=== PATIENT | male | born 1990 | race Caucasian/White ===

== ENCOUNTER 2020-12-17 01:47 | Observation (INO) | payer OTHER, SELFPAY ==
[2020-12-17] VITALS (13 sets, daily range): BP systolic 103–183; BP diastolic 59–97; PULSE 56–91; RESP 16–20; TEMP 36.1–36.9; O2SAT 91–100; BMI 33.4
--- NOTE | ~2020-12-17 | US_ITS ---
US abdomen limited INDICATION: Right upper quadrant pain. Cholelithiasis. PROCEDURE: Realtime right upper abdominal ultrasound. COMPARISON: No prior studies for comparison. FINDINGS: The pancreas is normal without focal mass or pancreatic ductal dilation. Liver echotexture is normal without focal mass or intrahepatic biliary dilatation. There is normal directional flow i n the portal vein. There are gallstones and gallbladder sludge. Mild gallbladder wall thickening measuring 4 mm. Common bile duct measures 3 mm. Positive sonographic Morales's sign. IMPRESSION: 1: Cholelithiasis, gallbladder sludge and gallbladder wall thickening with positive sonographic Raza y's sign. This constellation of findings is compatible with cholecystitis. Correlate clinically. Reviewed, dictated and finalized at location A. IMPRESSION: 1: Cholelithiasis, gallbladder sludge and gallbladder wall thickening with posi tive sonographic Morales's sign. This constellation of findings is compatible wi th cholecystitis. Correlate clinically.
--- NOTE | ~2020-12-17 | CT_ITS ---
EXAMINATION: CT abdomen pelvis wo con DATE: 12/17/2020 02:56 INDICATION: Flank pain for 4 days radiating to the front of the abdomen TECHNIQUE: Computed tomography (CT) of the abdomen and pelvis was performed without intravenous contr ast. The dose-length product was 393.20 mGy-cm. Automated exposure control and iterative reconstructi on technique were employed. COMPARISON: None. FINDINGS: Lung bases are unremarkable. Heart size is normal. No significant pleural or pericardial ef fusion. There are gallstones. There is hazy pericholecystic fatty infiltration, suspicious for cholec ystitis. The liver, spleen, pancreas, adrenal glands and and kidneys are unremarkable. Nonobstructive bowel gas pattern. No significant vascular abnormality. No lymphadenopathy. No acute osseous abnorma lity. No renal stones or hydronephrosis. IMPRESSION: 1. Cholelithiasis with mild pericholecystic fatty infiltration, suspicious for acute cholecystitis. Reviewed, dictated and finalized at location A.
--- NOTE | 2020-12-17 02:16 | ECG_ITS ---
Measurements Intervals [place] Rate: 59 P: 19 DE: 144 QRS: 13 QRSD: 116 T: -5 QT: 399 QTc: 397 Interpretive Statements SINUS BRADYCARDIA INCOMPLETE RIGHT BUNDLE BRANCH BLOCK CONSIDER INFERIOR INFARCT, AGE INDETERMINATE ABNORMAL ECG Electronically Signed On 12-17-2020 6:15:14 CDT by Boubacar Alexander D.O.
--- NOTE | 2020-12-17 02:17 | ED.GENADULT ---
HPI - General Adult General Chief complaint: Back Pain/Injury Stated complaint: back pain x 4 days Time Seen by Provider: 12/17/20 02:13 History of Present Illness HPI narrative: Patient 28-year-old gentleman who presents the emergency department with chief complaint of back pain and abdominal pain. The patient reports for the last 4 days has been having pain in the upper mid back that radiates to the front of his abdomen. The patient states the pain is sharp reports that is not improved by anything and reports that is not worsened by anything. Patient reports that tonight he got significantly worse reports that he has been diaphoretic and unable to find a position that gets him comfortable. The patient reports that over the last 4 days he is attempted to have chiropractic adjustment reports that he is tried other things at home to try to get the pain under control but has had no relief. Patient denies fever denies vomiting denies diarrhea patient reports has had no trauma. Related Data Home Medications Medication Instructions Recorded Confirmed omeprazole 20 mg PO DAILY 12/17/20 venlafaxine 75 mg PO DAILY 12/17/20 Allergies Allergy/AdvReac Type Severity Reaction Status Date / Time No Known Allergies Allergy Verified 12/17/20 01:55 Review of Systems Review of Systems: A 10 system review of systems was completed on the patient and is negative except for what is stated in the HPI. Nursing and ancillary documentation was reviewed. Exam Narrative: GENERAL: Well-appearing, well-nourished, and in no acute distress. HEAD: Normocephalic, atraumatic. EYES: PERRLA and EOMI. ENT: Nares clear, no rhinorrhea or epistaxis. Mucous membranes moist. NECK: Supple. CHEST: Clear to auscultation. No respiratory distress. HEART: Regular rate and rhythm. No murmur heard. Normal peripheral pulses. ABDOMEN: Soft, nontender, nondistended, normal active bowel sounds. EXTREMITIES: Normal range of motion. No edema. SKIN: Warm, dry, no rash. NEURO: No focal deficits. Alert and oriented x3. PSYCH: Normal mood and affect. Course Course Emergency Course: CT scan of the abdomen pelvis showed cholelithiasis and hazy gallbladder wall concern for cholecystitis. The patient case was discussed with Dr. Munoz of the surgical service and the patient admitted for observation and gallbladder ultrasound. Vital Signs Vital signs: Vital Signs Temperature 36.4 C 12/17/20 01:50 Pulse Rate 83 12/17/20 01:50 Respiratory Rate 16 12/17/20 01:50 Blood Pressure 137/97 H 12/17/20 01:50 Pulse Oximetry 100 12/17/20 01:50 Temperature 36.4 C 12/17/20 01:50 Pulse Rate 56 L 12/17/20 04:08 Respiratory Rate 16 12/17/20 04:08 Blood Pressure 145/83 H 12/17/20 04:08 Pulse Oximetry 100 12/17/20 04:08 Medical Decision Making Vital Signs Vital Signs: Vital Signs Temperature 36.4 C 12/17/20 01:50 Pulse Rate 83 12/17/20 01:50 Respiratory Rate 16 12/17/20 01:50 Blood Pressure 137/97 H 12/17/20 01:50 Pulse Oximetry 100 12/17/20 01:50 Temperature 36.4 C 12/17/20 01:50 Pulse Rate 56 L 12/17/20 04:08 Respiratory Rate 16 12/17/20 04:08 Blood Pressure 145/83 H 12/17/20 04:08 Pulse Oximetry 100 12/17/20 04:08 Lab Data Result diagrams: 12/17/20 02:36 12/17/20 02:36 Labs: Lab Results 12/17/20 12/17/20 12/17/20 Range/Units 02:36 02:36 02:36 WBC 13.0 H (4.5-10.0) K/mm3 RBC 5.16 (4.6-6.20) M/mm3 Hgb 14.9 (14.0-18.0) g/dL Hct 45.3 (42.0-52.0) % MCV 87.8 (80-100) fl MCH 28.9 (26-34) pg MCHC 32.9 (32-36) g/dl RDW 12.0 (11.5-14.5) % Plt Count 279 (150-375) k/mm3 MPV 10.3 (7.4-10.4) fl Immature Gran % (Auto) 0.3 (0-0.5) % Neut % (Auto) 74.8 H (45.5-73.1) % Lymph % (Auto) 17.5 L (18.3-44.2) % [place] % (Auto) 5.3 (2.6-8.5) % Eos % (Auto) 1.7 (0-4.4) % Baso % (Auto) 0.4 (0.2-1.2) % Lymph
[2020-12-17] MEDS: SODIUM CHLORIDE 0.9% IV 1,000 ML 999 ML IV CONT (02:34)
[2020-12-17] MEDS: HYDROmorphone HCL INJ (*CRX) 1 MG/ML SYR IV PUSH ×3 (02:36→22:33)
[2020-12-17] MEDS: ONDANSETRON INJ 4 MG/2 ML VIAL IV PUSH ×3 (02:36→22:33)
[2020-12-17 02:56] LABS: Basophils Absolute Auto 0.1 K/mm3 (0.0-0.1); Basophils Percent Auto 0.4 % (0.2-1.2); Eosinophils Absolute Auto 0.2 K/mm3 (0-0.3); Eosinophils Percent Auto 1.7 % (0-4.4); Hematocrit 45.3 % (42.0-52.0); Hemoglobin 14.9 g/dL (14.0-18.0); Immature Granulocyte Absolute 0.04 K/mm3 (0.00-0.031); Immature Granulocyte Percent A 0.3 % (0-0.5); Lymphocytes Absolute Auto 2.27 K/mm3 (0.9-3.2); Lymphocytes Percent Auto 17.5 % (18.3-44.2); Mean Corpuscular HGB Conc 32.9 g/dl (32-36); Mean Corpuscular Hemoglobin 28.9 pg (26-34); Mean Corpuscular Volume 87.8 fl (80-100); Mean Platelet Volume 10.3 fl (7.4-10.4); Monocytes Absolute Auto 0.7 K/mm3 (0.1-0.6); Monocytes Percent Auto 5.3 % (2.6-8.5); Neutrophils Absolute Auto 9.7 K/mm3 (1.3-6.7); Neutrophils Percent Auto 74.8 % (45.5-73.1); Platelet Count Result 279 k/mm3 (150-375); Red Blood Count 5.16 M/mm3 (4.6-6.20)
[2020-12-17 02:58] LABS: Add Urine Microscopic? YES; Appearance Urine Clear (Clear); Bilirubin Urine 1+ (Negative); Blood Urine 1+ (Negative); Color Urine Yellow (Yellow); Glucose Urine UA Negative (Negative); Ketones Urine Negative (Negative); Leukocyte Esterase Ur Negative LEU/UL (Negative); Mucus Urine Rare /lpf; Nitrate Urine Negative (Negative); Protein Urine Negative (Negative); RBC Urine 0-2 /hpf (0-2); Urobilinogen Urine Negative mg/dL (<2.0); WBC Urine 0-3 /hpf
[2020-12-17 03:06] LABS: Specific Grav Ur 1.032 (1.001-1.035)
[2020-12-17 03:07] LABS: Alanine Aminotransferase 73 U/L (4-50); Albumin Level 5.2 g/dL (3.5-5.1); Alkaline Phosphatase 81 U/L (38-126); Anion Gap 10 mmol/L (8-16); Aspartate Amino Transferase 42 U/L (17-59); Bilirubin,Total 0.4 mg/dL (0.2-1.3); Blood Urea Nitrogen 17 mg/dL (9-20); Calcium 9.7 mg/dL (8.4-10.2); Carbon Dioxide 24 mmol/L (22-30); Chloride 105 mmol/L (98-107); Estimated CRCL calculation 123 ml/min; Estimated Glomerular Filt Rate > 60; Glucose 99 mg/dL (65-110); Lactic Acid Reflex 1.5 mmol/L (0.7-2.1); Lipase 99 U/L (23-300); Sodium 139 mmol/L (137-145)
[2020-12-17] MEDS: SODIUM CHLORIDE 0.9% IV 1,000 ML 125 ML IV CONT ×2 (06:27→15:41)
[2020-12-17] MEDS: FAMOTIDINE 20 MG/2 ML VIAL (11:08)
--- NOTE | 2020-12-17 14:35 | ADMGEN ---
This patient, Darío Wade, was admitted to 2 Medical Room 261-01. Patient/family oriented to hospital policies and general routines including ID bracelet, bed and alarms, visiting hours, pain management, procedures, bathroom and other care routines, personal items, smoking policy, room service/diet, and visiting hours. Information on how to activate the Rapid Response Team has been discussed. Patient/Family are encouraged to report perceived risks to care and to ask questions if they do not understand what they are told or what they should do.
[2020-12-17] MEDS: FAMOTIDINE 20 MG/2 ML VIAL IV PUSH (20:49)
--- NOTE | 2020-12-17 21:36 | PM.IMHP ---
H&P: HPI History of Present Illness Date/Time: 12/17/20 21:36 Chief Complaint: upper midback pain Narrative: This patient is a 30-year-old White gentleman who presented the [place] emergency department early this morning with the chief complaint of back pain and abdominal pain. The patient reports for the last 4 days has been having on and off pain in the upper mid back that radiates to the front of his abdomen. The patient states the pain is sharp. he reports that it is not improved by anything and reports that is not worsened by anything. patient states that most recently he was fairly pain free in slept well on Thursday night. However, on Thursday at about 4:00 p.m. he and his fiancee when out to [employer] and he had a be per read 0 along with saw her cream. Subsequently the severe back pain hit again at about 10:00 p.m. Thursday night so he came to the emergency room early this morning when it did not resolve. Patient reported to the ER MD early this morning in that he had been diaphoretic and unable to find a position that could get him comfortable. The patient reports that over the last 4 days he is attempted various things to improve the pain. This includes scalding hot showers, ice and going to have a chiropractic adjustment. He reports that he is tried other things at home to try to get the pain under control but has had no relief. Patient denies fever, chills, or vomiting. he also denies diarrhea. The patient reports has had no trauma. Workup in emergency room early this morning reveals somewhat elevated white blood cell count a normal lactic acid and CT scan of the abdomen pelvis that suggested some thickening of the gallbladder wall and possible cholelithiasis. Therefore, after a discussion with ER MD we decided to keep the patient observation status and do an ultrasound of the gallbladder today. this resulted in confirmation of gallstones along with thickened gallbladder wall mild pericholecystic the cystic fluid along with a definite Morales sign. Therefore, earlier today started the patient on IV antibiotics and he continues to receive analgesics he does feel better but will also plan to proceed with a laparoscopic cholecystectomy possible open tomorrow. Review of Systems Constitutional: Constitutional: Reports as per HPI and Denies headache(s) Eyes: Eyes: Denies loss of vision and Denies eye pain ENT: Reports Normal hearing present, Denies change in voice, Denies dizziness and Denies headache(s) Cardiovascular: Cardiovascular: Denies chest pain and Denies dyspnea Respiratory: Respiratory: Denies dyspnea and Denies wheezing Gastrointestinal: Gastrointestinal: Reports abdominal pain ( mild intermittently in upper abdomen) and Denies dysphagia Genitourinary: Genitourinary: Reports no additional male genitourinary complaints Musculoskeletal: Musculoskeletal: Denies back pain and Denies arthralgias Integumentary/Breasts: Comments: multiple small lipomas. One on the dorsal mid forearm on the left. Neurologic: Reports Normal hearing present, Denies dizziness, Denies headache(s), Denies loss of vision and Denies memory loss Psychiatric: Psychiatric: Denies memory loss and Denies panic attacks Endocrine: Endocrine: Reports no additional endocrine complaints Hematologic/Lymphatic: Hematologic/Lymphatic: Reports no additional hematologic/lymphatic complaints Allergic/Immunologic: Allergic/Immunologic: Denies wheezing [facility] Past Medical History Medical History (Updated 12/18/20 @ 11:19 by Andrea Pérez MD) Biliary colic Cholelithiasis with acute on chronic cholecystitis without biliary obstruction (~12/13/20) Obesity (BMI 30.0-34.9) (Unknown) Family History Family History (Updated 12/17/20 @ 21:48 by Vipin Munoz MD) Father Non-Hodgkin lymphoma Other Carcinoma of colon Social History Social History Smoking status: Never smoker Drinks p
[2020-12-18] VITALS (17 sets, daily range): BP systolic 97–140; BP diastolic 51–89; PULSE 58–103; RESP 14–20; TEMP 35.8–36.6; O2SAT 95–100
[2020-12-18] MEDS: SODIUM CHLORIDE 0.9% IV 1,000 ML 125 ML IV CONT (03:07)
[2020-12-18 05:47] LABS: Basophils Percent Auto 0.4 % (0.2-1.2); Eosinophils Absolute Auto 0.3 K/mm3 (0-0.3); Eosinophils Percent Auto 3.9 % (0-4.4); Hematocrit 40.9 % (42.0-52.0); Hemoglobin 13.3 g/dL (14.0-18.0); Immature Granulocyte Absolute 0.02 K/mm3 (0.00-0.031); Immature Granulocyte Percent A 0.3 % (0-0.5); Lymphocytes Absolute Auto 2.01 K/mm3 (0.9-3.2); Lymphocytes Percent Auto 29.3 % (18.3-44.2); Mean Corpuscular HGB Conc 32.5 g/dl (32-36); Mean Corpuscular Hemoglobin 28.7 pg (26-34); Mean Corpuscular Volume 88.3 fl (80-100); Mean Platelet Volume 10.3 fl (7.4-10.4); Monocytes Absolute Auto 0.7 K/mm3 (0.1-0.6); Monocytes Percent Auto 9.8 % (2.6-8.5); Neutrophils Absolute Auto 3.9 K/mm3 (1.3-6.7); Neutrophils Percent Auto 56.3 % (45.5-73.1); Platelet Count Result 213 k/mm3 (150-375); Red Blood Count 4.63 M/mm3 (4.6-6.20); Red Cell Distribution Width 12.1 % (11.5-14.5); White Blood Count 6.9 K/mm3 (4.5-10.0)
[2020-12-18 06:13] LABS: Alanine Aminotransferase 54 U/L (4-50); Albumin Level 4.1 g/dL (3.5-5.1); Alkaline Phosphatase 75 U/L (38-126); Amylase 53 U/L (30-110); Anion Gap 7 mmol/L (8-16); Aspartate Amino Transferase 29 U/L (17-59); Bilirubin,Total 0.7 mg/dL (0.2-1.3); Blood Urea Nitrogen 10 mg/dL (9-20); Calcium 8.8 mg/dL (8.4-10.2); Carbon Dioxide 25 mmol/L (22-30); Chloride 104 mmol/L (98-107); Estimated CRCL calculation 141 ml/min; Estimated Glomerular Filt Rate > 60; Glucose 91 mg/dL (65-110); Lipase 73 U/L (23-300); Potassium 3.8 mmol/L (3.4-5.0); Sodium 136 mmol/L (137-145)
[2020-12-18] MEDS: FAMOTIDINE 20 MG/2 ML VIAL IV PUSH ×2 (08:31→20:03)
--- NOTE | 2020-12-18 10:50 | PC.NURSE ---
To OR per stretcher, IV saline locked.
[2020-12-18] MEDS: LACTATED RINGERS 1,000 ML 30 ML IV CONT ×2 (11:00→14:11)
--- NOTE | 2020-12-18 11:18 | WPDANESEPPF ---
Anes - Initial Pre Proc Eval Procedure: Operation Date: 12/18/20 12:00 Proposed Procedures p Laparoscopic Cholecystectomy,Possible Intraoperative Cholangiograms,Possible Open - Vipin Munoz MD Date/Time: 12/18/20 11:18 Surgeon: Vipin Munoz MD Pre Op Diagnosis: Biliary colic Patient Data Age: 30 Gender: M Height: 1.88 m Weight: 118.1 kg Last Vital Signs Temp 36.3 C L 12/18/20 11:01 Pulse 75 12/18/20 11:01 Resp 16 12/18/20 11:01 BP 127/76 12/18/20 11:01 Pulse Ox 100 12/18/20 11:01 Allergies Allergy/AdvReac Type Severity Reaction Status Date / Time No Known Allergies Allergy Verified 12/17/20 14:59 Home Medications Medication Instructions Recorded Confirmed Type omeprazole 20 mg PO DAILY 12/17/20 12/17/20 History venlafaxine 75 mg PO DAILY 12/17/20 12/17/20 History Laboratory Tests 12/18/20 12/18/20 12/18/20 05:13 05:13 05:13 WBC 6.9 K/mm3 K/mm3 (4.5-10.0) RBC 4.63 M/mm3 M/mm3 (4.6-6.20) Hgb 13.3 g/dL L g/dL (14.0-18.0) Hct 40.9 % L % (42.0-52.0) MCV 88.3 fl fl (80-100) MCH 28.7 pg pg (26-34) MCHC 32.5 g/dl g/dl (32-36) RDW 12.1 % % (11.5-14.5) Plt Count 213 k/mm3 k/mm3 (150-375) MPV 10.3 fl fl (7.4-10.4) Immature Gran % (Auto) 0.3 % % (0-0.5) Neut % (Auto) 56.3 % % (45.5-73.1) Lymph % (Auto) 29.3 % % (18.3-44.2) Patrick % (Auto) 9.8 % H % (2.6-8.5) Eos % (Auto) 3.9 % % (0-4.4) Baso % (Auto) 0.4 % % (0.2-1.2) Lymph # (Auto) 2.01 K/mm3 K/mm3 (0.9-3.2) Patrick # (Auto) 0.7 K/mm3 H K/mm3 (0.1-0.6) Eos # (Auto) 0.3 K/mm3 K/mm3 (0-0.3) Baso # (Auto) 0.0 K/mm3 K/mm3 (0.0-0.1) Abs Immat Gran (auto) 0.02 K/mm3 K/mm3 (0.00-0.031) Absolute Neuts (auto) 3.9 K/mm3 K/mm3 (1.3-6.7) Absolute Nucleated RBC 0.0 K/mm3 K/mm3 (0.0-0.012) Nucleated RBC % 0.0 % % (0.0-0.2) Sodium 136 mmol/L L mmol/L (137-145) Potassium 3.8 mmol/L mmol/L (3.4-5.0) Chloride 104 mmol/L mmol/L (98-107) Carbon Dioxide 25 mmol/L mmol/L (22-30) Anion Gap 7 mmol/L L mmol/L (8-16) BUN 10 mg/dL D mg/dL (9-20) Creatinine 0.90 mg/dL mg/dL (0.7-1.3) Estim Creat Clear Calc 141 ml/min ml/min Estimated GFR > 60 (59 - ) Glucose 91 mg/dL mg/dL (65-110) Calcium 8.8 mg/dL mg/dL (8.4-10.2) Total Bilirubin 0.7 mg/dL mg/dL (0.2-1.3) AST 29 U/L U/L (17-59) ALT 54 U/L H U/L (4-50) Alkaline Phosphatase 75 U/L U/L (38-126) Total Protein 7.0 g/dL g/dL (6.3-8.2) Albumin 4.1 g/dL g/dL (3.5-5.1) Amylase 53 U/L U/L (30-110) Lipase 73 U/L U/L (23-300) Blood Type A Positive Antibody Screen Negative Patient hx anesthesia problems: none Family hx anesthesia problems: none [facility] Past Medical History Medical History (Updated 12/18/20 @ 11:19 by Andrea Pérez MD) Biliary colic Cholelithiasis with acute on chronic cholecystitis without biliary obstruction (~12/13/20) Obesity (BMI 30.0-34.9) (Unknown) Family History Family History (Updated 12/17/20 @ 21:48 by Vipin Munoz MD) Father Non-Hodgkin lymphoma Other Carcinoma of colon Social History Social History Smoking status: Never smoker Drinks per week: 2 Substance use: never Spiritual care concerns: No Anes - Eval Final PreProcedure Day of Procedure 12/18/20 11:18 Patient weight: obese Heart: regular rate and rhythm Lungs: clear to auscultation and normal air movement Airway: Mallampati scale class II Neurological: alert and oriented Last oral intake: >/= 8 hours A
--- NOTE | 2020-12-18 12:01 | WPDHPUPDATE1 ---
History and Physical Update Update Date/Time: 12/18/20 12:01 History and Physical has been reviewed, including an updated exam of the patient. There are NO changes in the patient's condition. Risks, benefits, and alternatives have been discussed and questions answered. Patient agrees to proceed with procedure.
[2020-12-18] MEDS: BUPIVACAINE/EPINEPHRINE 0.5% 50 ML VIAL (12:48)
--- NOTE | 2020-12-18 14:30 | W.PM.PROC2 ---
Procedure Note - Detailed Date of Procedure 12/18/20 Pre-op Diagnosis 1. Acute on chronic cholecystitis with cholelithiasis without biliary obstruction 2. Biliary colic Post-op Diagnosis same Procedure Performed Laproscopic Cholecystectomy Surgeon Vipin Munoz MD International Affairs Vice President Brigitte HANNON.OR certified surgical first assistant Anesthesia general Indications See H&P Patient has had on and off severe back pain in episodes correlating with eating fatty foods. CT and ultrasound on evaluation in the emergency room showed definite cholecystitis suspected to be acute. Findings Patient had significant edema of the omentum and pericholecystic fluid around the gallbladder. The gallbladder was whitish, red in color and inflamed. There was significant inflammatory adhesions around the triangle of Calot. Description of Procedure Patient was seen preoperatively in the holding area and risks, benefits and alternatives confirmed. Patient was taken to the operating room and general anesthesia was induced. A time out was then preformed with the surgery team confirming patient and site of surgery. The abdomen was prepped and draped in the usual sterile fashion. Incision was made just below the umbilicus with an 11 blade knife. I placed 2 stay sutures of O- Vicryl on either side of the mid-line fascia beneath the umbilicus and made a 1 cm incision with an 11 blade knife in the midline fascia and was then able to slide in the Barr cannula through the fascial defect into the peritoneum. First under low flow and then under high flow the abdomen was insufflated with carbon dioxide never exceeding a pressure of 14. Three 5 mm trocars were then introduced under direct vision. The following trocars were introduced under direct vision: a 5 mm in the epigastrium and two 5 mm trocars along the right costal margin laterally in the subcostal area. There were significant omental adhesions to the underside of the gallbladder. These were taken down with blunt and sharp dissection using some Bovie cautery for hemostasis. We were able to dissect this completely away from the neck of the gallbladder. I then carefully used the L-shaped cautery and the [place] dissector to dissect out the triangle of Calot. I then was able to dissect out both the cystic duct and cystic artery and identify a window of safety. The gall bladder was grasped and the cystic duct and artery were dissected free and clipped with an 5 mm endo-clip manager market research. The cystic duct and artery were clipped with use of 2 clips on the patient's side 1 on the gallbladder side utilizing a 5 mm endoclip-manager market research. The cystic duct was then transected. The cystic artery was also transected at this point. The gall bladder was removed using electrocautery and then removed from the abdomen using an endobag . The trocars were removed visualizing hemostasis and the remaining gas evacuated. The large trocar site at the umbilicus was closed with use of the 2 stay sutures of 0 Vicryl mentioned above and also a figure of 8 O-Vicryl suture. The 2 stay sutures mentioned above on either side of the fascia were also tied together to help approximate this midline fascia. Further local anesthetic was placed into each incision for postop pain control. The skin incisions were closed with subcuticular suture of 4-0 Monocryl. Surgical glue then was applied to all the incisions. Patient tolerated the procedure well was taken to the recovery room in good condition. Implants none Estimated Blood Loss 40 Drains No Packing No Pathology yes (Gallbladder) Complications No immediate complications Condition stable Disposition PACU
[2020-12-18] MEDS: fentaNYL CITRATE INJ (*CRX) 100 MCG/2 ML VIAL 25 MCG IV PUSH ×8 (14:40→15:25)
--- NOTE | 2020-12-18 15:45 | PC.NURSE ---
Returned from OR per stretcher. Report received from PARVEZ Roberto.
[2020-12-18] MEDS: LACTATED RINGERS 1,000 ML 100 ML IV CONT (16:42)
[2020-12-18] MEDS: HYDROcodone/acetaminophen (*CRX) 5-325 MG TABLET 1 TAB PO (16:43)
[2020-12-18] MEDS: SENNA/DOCUSATE SODIUM TABLET 2 TAB PO (20:02)
[2020-12-18] MEDS: HYDROcodone/acetaminophen (*CRX) 7.5-325 MG TABLET 1 TAB PO (20:03)
[2020-12-18] MEDS: MORPHINE SULFATE (*CRX) 2 MG/ML INJ IV PUSH (23:23)
[2020-12-19] MEDS: HYDROcodone/acetaminophen (*CRX) 7.5-325 MG TABLET 1 TAB PO (05:22)
[2020-12-19 05:34] LABS: Hematocrit 39.7 % (42.0-52.0); Hemoglobin 13.1 g/dL (14.0-18.0); Mean Platelet Volume 10.4 fl (7.4-10.4); Platelet Count Result 240 k/mm3 (150-375); Red Blood Count 4.51 M/mm3 (4.6-6.20); White Blood Count 13.5 K/mm3 (4.5-10.0)
[2020-12-19 06:16] LABS: Alanine Aminotransferase 89 U/L (4-50); Albumin Level 4.1 g/dL (3.5-5.1); Alkaline Phosphatase 73 U/L (38-126); Anion Gap 11 mmol/L (8-16); Aspartate Amino Transferase 56 U/L (17-59); Bilirubin,Total 0.6 mg/dL (0.2-1.3); Blood Urea Nitrogen 9 mg/dL (9-20); Calcium 9.2 mg/dL (8.4-10.2); Carbon Dioxide 21 mmol/L (22-30); Chloride 108 mmol/L (98-107); Estimated CRCL calculation 158 ml/min; Estimated Glomerular Filt Rate > 60; Glucose 107 mg/dL (65-110); Sodium 140 mmol/L (137-145)
[2020-12-19 06:20] VITALS: BP 130/55; PULSE 78; RESP 16; TEMP 36.5; O2SAT 98
--- NOTE | 2020-12-19 08:17 | PM.DS ---
DS: Admitting Diagnosis Admitting Diagnosis 1. Abdominal pain 2. acute on chronic cholecystitis with cholelithiasis DS: Discharge Diagnosis Discharge Diagnosis (1) Cholelithiasis with acute on chronic cholecystitis without biliary obstruction: Onset Date: ~12/13/20 Code(s): K80.12 - Calculus of gallbladder with acute and chronic cholecystitis without obstruction Status: Acute Assessment and Plan: This was the main reason for the patient's admission. Ultrasound after admission confirmed results of CT scan done in the ED. This showed acute cholecystitis with cholelithiasis. Patient continued to have pain so he was taken to the operating room and successful laparoscopic cholecystectomy was completed. See op note. (2) Biliary colic: Code(s): K80.50 - Calculus of bile duct without cholangitis or cholecystitis without obstruction Status: Acute Assessment and Plan: as above. Now resolved. (3) Obesity (BMI 30.0-34.9): Onset Date: Unknown Code(s): E66.9 - Obesity, unspecified Status: Acute Assessment and Plan: Encouraged pt to follow low fat diet and increase his exercise after he recovers from his surgery in a few weeks. DS: Summary Hospital Course Reason for hospitalization: acute on chronic cholecystitis with cholelithiasis without biliary obstruction Hospital Course: Patient uneventful hospital course. After ultrasound confirmed the findings from his ED evaluation and patient was not improving we proceeded to surgical intervention for his cholecystitis. The day following admission he was feeling better and nauseated. Therefore discharge in good condition with plans for follow-up in the office. Because of the acute nature and significant inflammation at the time of his surgery was kept overnight to continue IV antibiotics for 24 hours view of suspected infection. Time spent discussing smoking cessation with patient: more than 10 minutes Status at Discharge Cognitive/behavioral status at discharge: patient is normal with this Functional status at discharge: independent ambulation Overall status at discharge: patient is not back to baseline Time Spent with Patient Time attestation: Total time spent providing and/or coordinating discharge services: Time spent: Less than 30 minutes Exam Const: General: cooperative, no acute distress, well developed, alert and awake Nutritional Appearance: well nourished Orientation/consciousness: patient oriented x3 Limitations: no limitations HENMT: Head: normal to inspection, normocephalic and atraumatic Ears: hearing grossly normal bilaterally General nose exam: Normal external nose present Face and sinus: normal facial exam Mouth: Yes Normal oral and palatal mucosa present, Yes tongue normal and Yes moist mucous membranes Eyes: General: appearance normal, both eyes and all related structures Pupils: Equal, round and reactive pupils present EOM: EOMs intact bilaterally Neck: Neck: normal visual inspection, no lymphadenopathy, trachea midline and supple Lymphatic: no lymphadenopathy noted Chest: Chest palpation & inspection: normal inspection of the chest Resp: Effort & Inspection: normal respiratory effort and able to speak in complete sentences Auscultation: clear to auscultation bilaterally Cardio: Jugular venous distension: no JVD Rate: regular rate Rhythm: regular rhythm Heart sounds: no murmurs GI: Inspection: normal to inspection, incision ( clean and dry with surgical glue in place) and obesity Auscultation: normal bowel sounds Rectal Exam: deferred : General: Yes no CVA tenderness Back/Spine/Pelvis: Back: no CVA tenderness and No mass Cervical Spine: cervical ROM normal Thoracic/Lumbar Spine: paraspinal muscle tenderness ( Just to the right of spine at about the T9-10 level.) Back/spine/pelvis image: 1. area of patient's complaint of pain with no physical findings present. Skin: General ski
[2020-12-19 08:38] VITALS: RESP 16; O2SAT 95
[2020-12-19] MEDS: ENOXAPARIN 40 MG/0.4 ML SYRINGE SUB-Q (08:38)
[2020-12-19] MEDS: FAMOTIDINE 20 MG/2 ML VIAL IV PUSH (08:38)
[2020-12-19 09:21] VITALS: BP 127/75; PULSE 89; RESP 16; TEMP 36.1; O2SAT 95
== END 2020-12-19 10:30 | disposition home or self-care (01) ==
LOC: ANHED 04:38 → ANH2MED 06:45
PROVIDERS: Emergency Medicine; Admitting Provider Surgery; Emergency Provider Emergency Medicine; PCP Internal Medicine; Visit Provider Surgery
PROC: 0FT44ZZ Resection of Gallbladder, Percutaneous Endoscopic Approach (ICD-10-PCS; CPT 47562; principal; 2020-12-18 12:00)
DX: K80.10 Calculus of gallbladder with chronic cholecystitis without obstruction (principal); M54.9 Dorsalgia, unspecified; E66.9 Obesity, unspecified; Z68.33 Body mass index [BMI] 33.0-33.9, adult
CPT/HCPCS: 47562; 36415; 74176; 76705; 80053; 81001; 82150; 83605; 83690; 85025; 85027; 86850; 86900; 86901; 88304; 93005; 96361; 96365; 96375; 96376; 99285; A9270; G0378; J1100; J1170; J1650; J2250; J2270; J2405; J2704; J2710; J3010; J7030; J7120; Q9966